=== PATIENT | female | born 1965 | race Caucasian/White ===

== ENCOUNTER 2022-11-16 09:49 | Day surgery (SDC) | payer BC, OTHER ==
[2022-11-16 10:11] VITALS: BMI 18.3
[2022-11-16 11:27] VITALS: PULSE 73; RESP 18; TEMP 97.5
[2022-11-16 11:34] VITALS: BP 120/58
== END 2022-11-16 11:55 | disposition home or self-care (01) ==
LOC: FASU-ENDO 09:49
PROVIDERS: ATTEND Internal Medicine Gastroenterology
PROC: 0DBN8ZX Excision of Sigmoid Colon, Via Natural or Artificial Opening Endoscopic, Diagnostic (ICD-10-PCS; principal; 2022-11-16 10:53)
DX: Z12.11 Encounter for screening for malignant neoplasm of colon (principal); K63.5 Polyp of colon; K64.1 Second degree hemorrhoids
CPT/HCPCS: 88305-TC

== ENCOUNTER → 2022-12-26 | Day surgery (SDC) | payer BC | END | disposition home or self-care (01) | LOC: JRADUS-SUR 09:14 | PROVIDERS: ATTEND Internal Medicine | PROC: 0H9U3ZX Drainage of Left Breast, Percutaneous Approach, Diagnostic (ICD-10-PCS; principal; 2022-12-26) | DX: N60.02 Solitary cyst of left breast (principal); Z53.8 Procedure and treatment not carried out for other reasons | CPT/HCPCS: 19083; 76642-TC-LT ==